=== PATIENT | female | born 1945 | race Asian ===

== ENCOUNTER 2018-06-04 18:40 | Emergency (ER) | payer BC ==
[~2018-06-04] VITALS: Ht 162.6 cm; Wt 80.9 kg
[~2018-06-04 18:40] MED LIST: ASPIR 8181 MG PO; COL0.6 PO; GLIPIZIDE5 MG PO; GLU500 PO; LIPI20 PO; LOR PO; PROT40I IV; PROTONIX20 MG PO; REG10I IV; REGLAN10 MG PO; ULT50 PO; VITAMIN D32000 I2 PO; ZES10; ZOF4 PO; ZOFI IV; ZOFRAN ODT4 MG SL; ZYL100 PO
[2018-06-04 18:43] VITALS: Ht 162.6 cm; Wt 80.9 kg
[2018-06-04 19:37] LABS: BASOPHIL % 0.6 % (0-2); PLATELET COUNT 249 x10^3mcL (130-400); RED CELL DISTRIBUTION WIDTH 14.5 % (11.5-14.5)
[2018-06-04 19:46] LABS: CALCIUM 9.5 mg/dL (8.5-10.1); CARBON DIOXIDE 24.2 mmol/L (21-32); CREATININE SERUM 1.8 mg/dL (0.6-1.0); POTASSIUM SERUM 4.2 mmol/L (3.5-5.1)
[2018-06-04 19:53] LABS: ALBUMIN 3.9 g/dL (3.4-5.0); BILIRUBIN TOTAL 0.57 mg/dL (0.20-1.00); TOTAL PROTEIN, SERUM 8.1 g/dL (6.4-8.2)
[2018-06-04 22:06] VITALS: BP 142/75
== END 2018-06-04 22:06 | disposition home or self-care (01) ==
LOC: ED 18:40
PROVIDERS: Emergency Medicine
DX: S00.03XA Contusion of scalp, initial encounter (principal); R55 Syncope and collapse; E11.22 Type 2 diabetes mellitus with diabetic chronic kidney disease; I12.9 Hypertensive chronic kidney disease with stage 1 through stage 4 chronic kidney disease, or unspecified chronic kidney disease; N18.9 Chronic kidney disease, unspecified; E78.00 Pure hypercholesterolemia, unspecified; W18.39XA Other fall on same level, initial encounter; Y93.89 Activity, other specified; Y92.89 Other specified places as the place of occurrence of the external cause; Y99.8 Other external cause status
CPT/HCPCS: 36415

== ENCOUNTER 2019-05-04 22:52 | Emergency (ER) | payer BC ==
[~2019-05-04] VITALS: Ht 160 cm; Wt 77.1 kg
[2019-05-04 23:05] VITALS: Ht 160 cm; Wt 77.1 kg
[2019-05-05 00:09] LABS: CHLORIDE SERUM 103 mmol/L (98-107); SODIUM SERUM 139 mmol/L (136-145)
[2019-05-05 00:10] LABS: ALBUMIN 4.3 g/dL (3.4-5.0); ALT/SGPT 63 U/L (14-59); AST/SGOT 30 U/L (15-37); BILIRUBIN TOTAL 0.5 mg/dL (0.20-1.00); CALCIUM 10.2 mg/dL (8.5-10.1); CARBON DIOXIDE 26.3 mmol/L (21-32); CREATININE SERUM 1.7 mg/dL (0.6-1.0); GLUCOSE SERUM 170 mg/dL (74-106); TOTAL PROTEIN, SERUM 8.7 g/dL (6.4-8.2)
[2019-05-05 00:11] LABS: ALKALINE PHOSPHATASE 79 U/L (46-116); LIPASE 117 IU/L (73-393)
[2019-05-05 00:19] LABS: BASOPHIL % 0.3 % (0-2); PLATELET COUNT 268 x10^3mcL (130-400); RED CELL DISTRIBUTION WIDTH 14.4 % (11.5-14.5)
[2019-05-05 02:58] VITALS: BP 119/57
== END 2019-05-05 02:42 | disposition home or self-care (01) ==
LOC: ED 22:52
PROVIDERS: Emergency Medicine
DX: R10.10 Upper abdominal pain, unspecified (principal); R11.10 Vomiting, unspecified; I10 Essential (primary) hypertension; E11.9 Type 2 diabetes mellitus without complications; E78.00 Pure hypercholesterolemia, unspecified
CPT/HCPCS: J2270; J2405; J7030; Q0092; Q0162

== ENCOUNTER 2019-12-11 09:42 | Observation (INO) | payer BC ==
[~2019-12-11] VITALS: Ht 160 cm; Wt 79.8 kg
[2019-12-11 10:41] LABS: BASOPHIL % 0.5 % (0-2); PLATELET COUNT 241 x10^3mcL (130-400)
[2019-12-11 10:53] LABS: RED CELL DISTRIBUTION WIDTH 14.7 % (11.5-14.5)
[2019-12-11 11:06] LABS: CALCIUM 9.3 mg/dL (8.5-10.1); CARBON DIOXIDE 23.3 mmol/L (21-32); CHLORIDE SERUM 103 mmol/L (98-107); CREATININE SERUM 1.5 mg/dL (0.6-1.0); GLUCOSE SERUM 173 mg/dL (74-106); POTASSIUM SERUM 4.2 mmol/L (3.5-5.1); SODIUM SERUM 137 mmol/L (136-145)
[2019-12-11 11:10] LABS: ALBUMIN 3.8 g/dL (3.4-5.0); ALKALINE PHOSPHATASE 62 U/L (46-116); ALT/SGPT 39 U/L (14-59); AST/SGOT 27 U/L (15-37); BILIRUBIN TOTAL 0.6 mg/dL (0.20-1.00); TOTAL PROTEIN, SERUM 7.5 g/dL (6.4-8.2)
[2019-12-11] MEDS ORDERED: LOSARTAN POTASS50 M1 (15:42)
[2019-12-11] MEDS ORDERED: GLIPIZIDE XL5 M2 (15:43)
[2019-12-11] MEDS ORDERED: METOPROLOL SUCC50 M2 (15:43)
[2019-12-11] MEDS ORDERED: CARTIA XT180 M1 (15:43)
[2019-12-11] MEDS ORDERED: NITROGLYCERIN0.4 MG (15:44)
[2019-12-11 16:39] LABS: CHOLESTEROL/HDL RATIO 2.3
[2019-12-11 22:02] VITALS: BP 139/60
[2019-12-12 06:03] VITALS: BP 119/59
[2019-12-12 07:23] LABS: BASOPHIL % 0.5 % (0-2); PLATELET COUNT 216 x10^3mcL (130-400)
[2019-12-12 07:37] LABS: CALCIUM 9.7 mg/dL (8.5-10.1); CARBON DIOXIDE 23.5 mmol/L (21-32); CHLORIDE SERUM 106 mmol/L (98-107); CREATININE SERUM 1.3 mg/dL (0.6-1.0); GLUCOSE SERUM 133 mg/dL (74-106); POTASSIUM SERUM 3.7 mmol/L (3.5-5.1); SODIUM SERUM 140 mmol/L (136-145)
[2019-12-12 07:59] LABS: RED CELL DISTRIBUTION WIDTH 14.7 % (11.5-14.5)
[2019-12-12 09:40] VITALS: BP 118/58
[2019-12-12 13:47] VITALS: BP 121/61
[2019-12-12 18:16] VITALS: BP 110/41
[2019-12-12 21:01] VITALS: BP 117/48
[2019-12-13 06:21] VITALS: BP 109/64
[2019-12-13 07:07] LABS: BASOPHIL % 0.9 % (0-2); PLATELET COUNT 215 x10^3mcL (130-400); RED CELL DISTRIBUTION WIDTH 14.5 % (11.5-14.5)
[2019-12-13 07:16] LABS: CALCIUM 9.3 mg/dL (8.5-10.1); CARBON DIOXIDE 24.5 mmol/L (21-32); CHLORIDE SERUM 103 mmol/L (98-107); CREATININE SERUM 1.2 mg/dL (0.6-1.0); GLUCOSE SERUM 147 mg/dL (74-106); SODIUM SERUM 138 mmol/L (136-145)
[2019-12-13 08:41] VITALS: BP 107/56
[2019-12-13 12:28] VITALS: BP 116/45
== END 2019-12-13 15:31 | disposition home or self-care (01) ==
LOC: ED 09:42 → DU 15:32
PROVIDERS: Student in an Organized Health Care Education/Training Program; ADMIT Internal Medicine; ATTEND Internal Medicine
DX: R07.89 Other chest pain (principal); I10 Essential (primary) hypertension; E11.9 Type 2 diabetes mellitus without complications; R00.1 Bradycardia, unspecified
CPT/HCPCS: 85378; G0378; J1644; Q0092